=== PATIENT | male | born 1970 | race American Indian/Alaskan Native ===

== ENCOUNTER 2018-11-11 12:06 | Inpatient (IN) | payer MEDICARE ==
[~2018-11-11 12:06] MED LIST: MAXIPIME IV ONE; NS IV ONE
[2018-11-11] MEDS ORDERED: NACL 0.9% 500 ML 500 ML IV ONE (12:58)
[2018-11-11] MEDS ORDERED: MAXIPIME/NS 2 GM/100 ML 2 GM/100 ML BAG IV ONE (13:01)
[2018-11-11 13:21] LABS: Basophils % (Auto) 0.5 % (0.0-1.8); Eosinophils % (Auto) 0.1 % (0.0-4.3); Hematocrit 45.2 % (35.5-45.6); Hemoglobin 15.5 gm/dl (11.8-15.2); Lymphocytes % (Auto) 14.1 % (13.4-35.0); Mean Corpuscular HGB Conc 34 % (32-34); Mean Corpuscular Volume 97 fl (84-94); Monocytes # (Auto) 0.9 K/mm3 (0.0-0.8); Monocytes % (Auto) 12.1 % (0.0-7.3); Platelet Count 294 K/mm3 (140-440); Red Blood Count 4.66 M/mm3 (3.65-5.03); Red Cell Distribution Width 13.5 % (13.2-15.2)
[2018-11-11 13:31] LABS: INR 0.9 (0.87-1.13)
--- NOTE | 2018-11-11 13:32 | XRay Report ---
AP CHEST: HISTORY: Possible sepsis AP view of the chest demonstrates a normal mediastinal and cardiac contour with clear lungs and normal bony and soft tissue structures. IMPRESSION: Unremarkable AP chest.
[2018-11-11 13:42] LABS: Albumin 4.3 g/dL (3.9-5); BUN/Creatinine Ratio 13; Blood Urea Nitrogen 12 mg/dL (9-20); Calcium 9.3 mg/dL (8.4-10.2); Hemolysis Index 332
--- NOTE | 2018-11-11 13:53 | Cat Scan Report ---
CT HEAD WITHOUT CONTRAST: HISTORY: Altered mental status. TECHNIQUE: Sequential 2.5mm CT images. COMPARISON: none. FINDINGS: Cerebral Parenchyma: Within normal limits. Cerebellum: Within normal limits. Brainstem: Within normal limits. Ventricles: Normal. Sella: Normal. Extra-axial spaces: Normal. Basal Cisterns: Normal. Intracranial Hemorrhage: None. Midline Shift: None. Calvarium: Normal. Sinuses: Normal. Mastoid Air Cells: Normal. Visualized Orbits: Normal. IMPRESSION: Cranial CT scan within normal limits.
[2018-11-11 14:12] LABS: Alanine Aminotransferase TNR units/L (7-56)
[2018-11-11] MEDS ORDERED: XYLOCAINE 1% 20 mL INFILTRATI ONE (14:32)
[2018-11-11 15:25] LABS: BUN/Creatinine Ratio 15; Blood Urea Nitrogen 12 mg/dL (9-20); Calcium 9.3 mg/dL (8.4-10.2); Hemolysis Index 24
--- NOTE | 2018-11-11 16:20 | Emergency Department Report ---
ED General Adult HPI - General Chief complaint: Seizure Stated complaint: POSS SIEZURE Time Seen by Provider: 11/11/18 12:19 Source: EMS Mode of arrival: Stretcher Limitations: Altered Mental Status - History of Present Illness Initial comments: Patient presents to the emergency department for altered mental status. The patient was brought in by EMS. The call was placed for patient having seizures in his car. Upon arrival the patient was confused. Patient still remained confused on arrival to ED and confusion did not appear to be just a post ictal nature especially since it was possibly an hour and 20 minutes after the seizure activity. The patient was also warm to touch on arrival -: Sudden Severity scale (0 -10): 0 Improves with: none Worsens with: none Associated Symptoms: denies other symptoms Treatments Prior to Arrival: none - Related Data Allergies Allergy/AdvReac Type Severity Reaction Status Date / Time No Known Allergies Allergy Unverified 11/11/18 12:57 ED Review of Systems ROS: Stated complaint: POSS SIEZURE Other details as noted in HPI Comment: Unobtainable due to pts medical conditions ED Past Medical Hx - Past Medical History Previous Medical History?: Yes Hx Seizures: Yes Additional medical history: Hearing Impaired , "Sight Vision" - Surgical History Past Surgical History?: No - Social History Smoking Status: Never Smoker Substance Use Type: None ED Physical Exam - General Limitations: Altered Mental Status General appearance: obtunded - Head Head exam: Present: atraumatic, normocephalic - Eye Eye exam: Present: normal appearance, PERRL, EOMI - ENT ENT exam: Present: normal exam, mucous membranes moist - Neck Neck exam: Present: normal inspection, full ROM - Respiratory Respiratory exam: Present: normal lung sounds bilaterally. Absent: respiratory distress, wheezes, rales, rhonchi - Cardiovascular Cardiovascular Exam: Present: normal rhythm, tachycardia - GI/Abdominal GI/Abdominal exam: Present: soft, normal bowel sounds. Absent: distended, tenderness - Rectal Rectal exam: Present: deferred - Neurological Exam Neurological exam: Present: other (not able to assess due to the patient's mental capacity) - Psychiatric Psychiatric exam: Present: other (not able to assess due to the patient's mental capacity) - Skin Skin exam: Present: warm, dry, intact. Absent: normal color, rash ED Course Vital Signs 11/11/18 11/11/18 11/11/18 12:17 12:18 13:00 Temperature 101.9 F H 101.9 F H Pulse Rate 97 H 97 H Respiratory 18 16 16 Rate Blood Pressure 127/79 Blood Pressure 127/79 [Right] O2 Sat by Pulse 97 97 100 Oximetry 11/11/18 15:30 Temperature 99.1 F Pulse Rate 95 H Respiratory 16 Rate Blood Pressure Blood Pressure 122/77 [Right] O2 Sat by Pulse 100 Oximetry - Lumbar Puncture Consent Obtained: written consent Time Out Performed: Yes Indication for Procedure: fever work up, change in mental status Patient Position: Sitting Upright/Leaning F Skin Prep: Povidone-Iodine 1% Local Anesthetic Used: Lidocaine 1% Amount of anesthesia used (mls): 10 Spinal Needle Gauge: 20G Spinal Needle Length: 2in Interspace Used: L3-L4 Fluid Initially Obtained: other (none) Complications: none Patient Tolerated Procedure: well Additional Comments: 3. Toes were made at lumbar puncture but the patient had a significant amount o f movement and was not able to follow directions due to his altered mental status ED Medical Decision Making - Lab Data Result diagrams: 11/11/18 12:58 11/11/18 14:53 Lab Results 11/11/18 11/11/18 11/11/18 Range/Units 12:53 12:58 13:00 WBC 7.1 (4.5-11.0) K/mm3 RBC 4.66 (3.65-5.03) M/mm3 Hgb 15.5 H (11.8-15.2) gm/dl Hct 45.2 (35.5-45.6) % MCV 97 H (84-94) fl MCH 33 H (28-32) pg MCHC 34 (32-34) % RDW 13.5 (13.2-15.2) % Plt Count 294 (140-440) K/mm3 Lymph % (Auto) 14.1 (13.4-35.0) % [place] % (Auto) 12.1 H (0.0-7.3) % Eos % (Auto) 0.1 (0.0-4.3) % Baso % (Auto) 0.5 (0.0-1.8) % Lymph # 1.0 L (1.2-5.4) K/mm3 [place] # 0.9 H (0.0-0.8) K/mm3 Eos # 0.0 (0.0-0.4) K/mm3 Baso # 0.0 (0.0-0.1) K/mm3 Seg Neutrophils % 73.2 H (40.0-70.0) % Seg Neutrophils # 5.2 (1.8-7.7) K/mm3 PT 12.7 (12.2-14.9) Sec. INR 0.90 (0.87-1.13) VBG pH (7.320-7.420) Sodium 134 L (137-145) mmol/L Potassium TNR Chloride 97.3 L (98-107) mmol/L Carbon Dioxide 26 (22-30) mmol/L Anion Gap 17 mmol/L BUN 12 (9-20) mg/dL Creatinine 0.9 (0.8-1.5) mg/dL Estimated GFR > 60 ml/min BUN/Creatinine Ratio 13 % Glucose 95 (75-100) mg/dL Lactic Acid (0.7-2.0) mmol/L Calcium 9.3 (8.4-10.2) mg/dL Total Bilirubin 0.30 (0.1-1.2) mg/dL AST TNR ALT TNR Alkaline Phosphatase TNR Total Protein 8.0 (6.3-8.2) g/dL Albumin 4.3 (3.9-5) g/dL Albumin/Globulin Ratio 1.2 % 11/11/18 11/11/18 11/11/18 Range/Units 13:00 13:00 14:53 WBC (4.5-11.0) K/mm3 RBC (3.65-5.03) M/mm3 Hgb (11.8-15.2) gm/dl Hct (35.5-45.6) % MCV (84-94) fl MCH (28-32) pg MCHC (32-34) % RDW (13.2-15.2) % Plt Count (140-440) K/mm3 Lymph % (Auto) (13.4-35.0) % [place] % (Auto) (0.0-7.3) % Eos % (Auto) (0.0-4.3) % Baso % (Auto) (0.0-1.8) % Lymph # (1.2-5.4) K/mm3 [place] # (0.0-0.8) K/mm3 Eos # (0.0-0.4) K/mm3 Baso # (0.0-0.1) K/mm3 Seg Neutrophils % (40.0-70.0) % Seg Neutrophils # (1.8-7.7) K/mm3 PT (12.2-14.9) Sec. INR (0.87-1.13) VBG pH 7.389 (7.320-7.420) Sodium (137-145) mmol/L Potassium Chloride (98-107) mmol/L Carbon Dioxide (22-30) mmol/L Anion Gap mmol/L BUN (9-20) mg/dL Creatinine (0.8-1.5) mg/dL Estimated GFR ml/min BUN/Creatinine Ratio % Glucose (75-100) mg/dL Lactic Acid 1.50 1.80 (0.7-2.0) mmol/L Calcium (8.4-10.2) mg/dL Total Bilirubin (0.1-1.2) mg/dL AST ALT Alkaline Phosphatase Total Protein (6.3-8.2) g/dL Albumin (3.9-5) g/dL Albumin/Globulin Ratio % 11/11/18 Range/Units 14:53 WBC (4.5-11.0) K/mm3 RBC (3.65-5.03) M/mm3 Hgb (11.8-15.2) gm/dl Hct (35.5-45.6) % MCV (84-94) fl MCH (28-32) pg MCHC (32-34) % RDW (13.2-15.2) % Plt Count (140-440) K/mm3 Lymph % (Auto) (13.4-35.0) % [place] % (Auto) (0.0-7.3) % Eos % (Auto) (0.0-4.3) % Baso % (Auto) (0.0-1.8) % Lymph # (1.2-5.4) K/mm3 [place] # (0.0-0.8) K/mm3 Eos # (0.0-0.4) K/mm3 Baso # (0.0-0.1) K/mm3 Seg Neutrophils % (40.0-70.0) % Seg Neutrophils # (1.8-7.7) K/mm3 PT (12.2-14.9) Sec. INR (0.87-1.13) VBG pH (7.320-7.420) Sodium 138 (137-145) mmol/L Potassium 4.6 Chloride 98.1 (98-107) mmol/L Carbon Dioxide 26 (22-30) mmol/L Anion Gap 19 mmol/L BUN 12 (9-20) mg/dL Creatinine 0.8 (0.8-1.5) mg/dL Estimated GFR > 60 ml/min BUN/Creatinine Ratio 15 % Glucose 100 (75-100) mg/dL Lactic Acid (0.7-2.0) mmol/L Calcium 9.3 (8.4-10.2) mg/dL Total Bilirubin (0.1-1.2) mg/dL AST ALT Alkaline Phosphatase Total Protein (6.3-8.2) g/dL Albumin (3.9-5) g/dL Albumin/Globulin Ratio % - EKG Data -: EKG Interpreted by Me EKG shows normal: sinus rhythm Rate: tachycardia - Radiology Data Radiology results: report reviewed Critical Care Time: Yes Critical care time in (mins) excluding proc time.: 45 Critical care attestation.: If time is entered above; I have spent that time in minutes in the direct care of this critically ill patient, excluding procedure time. ED Disposition Clinical Impression: Altered mental status, Fever Disposition: DC-01 TO HOME OR SELFCARE Is pt being admited?: Yes Does the pt Need Aspirin: No Condition: Stable Referrals: WANETTE FRANCHESKAPAOLIELLIS MD YAAKOV [Primary Care Provider] - 3-5 Days - Assessment Assessment Interval: Baseline - Level of Consciousness 1a. Level of Consciousness: arousable/minor stimuli - LOC Questions 1b. LOC Questions: answers no questions correctly - LOC Command 1c. LOC Commands: performs tasks correctly - Best Gaze 2. Best Gaze: normal - Visual 3. Visual: no visual loss - Facial Palsy 4. Facial Palsy: normal symmetrical movement - Motor Arm 5a. Motor Arm Left: no drift 5b. Motor Arm Right: no drift - Motor Leg 6a. Motor Leg Left: no drift 6b. Motor Leg Right: no drift - Limb Ataxia 7. Limb Ataxia: absent - Sensory 8. Sensory: normal - Best Language 9. Best Language: no aphasia - Dysarthria 10. Dysarthria: normal - Extinction and Inattention 11. Extinction/Inattention: no abnormality - Scoring Total Score: 3 Stroke Severity: Minor Stroke
[2018-11-11] MEDS ORDERED: ATIVAN IV ONE (16:23)
[2018-11-11 16:52] LABS: Bilirubin,Urine NEG (Negative); Blood,Urine NEG (Negative); Color,Urine Yellow (Yellow); Mucus,Urine FEW /HPF; Urobilinogen,Urine < 2.0 mg/dL (<2.0)
[2018-11-11] MEDS ORDERED: SODIUM CHLORIDE FLUSH SYRINGE 10 ML IV PRN (22:57)
[2018-11-11] MEDS ORDERED: ZOFRAN IV PRN (22:57)
[2018-11-11] MEDS ORDERED: DILAUDID IV PRN (22:57)
[2018-11-11] MEDS ORDERED: PERCOCET 5/325 PO PRN (22:57)
[2018-11-11] MEDS ORDERED: ATIVAN IV PRN (23:01)
[2018-11-12] MEDS: TYLENOL PO PRN ×2 (00:17→06:57)
[2018-11-12] MEDS: KEPPRA 750 MG in NACL 0.9% 100 ML IV SCH ×3 (00:18→21:30)
[2018-11-12] MEDS: SODIUM CHLORIDE FLUSH SYRINGE 10 ML IV SCH ×3 (00:20→21:31)
[2018-11-12 05:38] LABS: Basophils % (Auto) 0.4 % (0.0-1.8); Eosinophils % (Auto) 0.1 % (0.0-4.3); Hematocrit 46.6 % (35.5-45.6); Hemoglobin 15.9 gm/dl (11.8-15.2); Lymphocytes # (Auto) 1.6 K/mm3 (1.2-5.4); Lymphocytes % (Auto) 22.7 % (13.4-35.0); Mean Corpuscular HGB Conc 34 % (32-34); Mean Corpuscular Volume 97 fl (84-94); Monocytes # (Auto) 1.1 K/mm3 (0.0-0.8); Monocytes % (Auto) 15.9 % (0.0-7.3); Platelet Count 209 K/mm3 (140-440); Red Cell Distribution Width 13.3 % (13.2-15.2)
[2018-11-12 06:04] LABS: Alanine Aminotransferase 27 units/L (7-56); BUN/Creatinine Ratio 14; Blood Urea Nitrogen 14 mg/dL (9-20); Calcium 9.2 mg/dL (8.4-10.2); Hemolysis Index 10
--- NOTE | 2018-11-12 06:38 | Event Note ---
Date: 11/11/18 See H/p in reports Seizure disorder
[2018-11-12] MEDS ORDERED: ROCEPHIN/NS 2 GM/100 ML 2 GM/100 ML BAG IV SCH (06:42)
[2018-11-12] MEDS: ROCEPHIN/NS 2 GM/100 ML 2 GM/100 ML BAG IV SCH ×2 (06:56→14:32)
[2018-11-12] MEDS: PEPCID IV SCH ×3 (06:57→21:31)
--- NOTE | 2018-11-12 07:49 | History and Physical Report ---
CHIEF COMPLAINT: 1. Altered mental status. 2. Seizures. HISTORY OF PRESENT ILLNESS: A 48-year-old with no significant past medical history except for seizures. Apparently, was having seizures in the car and was altered sensorium. No witnessed seizures. The patient is not taking any medications for his seizures. The patient was brought in by the EMS. The patient was confused when the EMS arrived. No fever or chills. The patient was still confused after 1-1/2 hours of seizure activity. History of generalized tonic-clonic convulsions. No witnessed seizures now. PAST MEDICAL HISTORY: Seizures. Hearing impaired. PAST SURGICAL HISTORY: None. SOCIAL HISTORY: Does not smoke. FAMILY HISTORY: Unknown. REVIEW OF SYSTEMS: Significant for seizure disorder, seizures and altered sensorium. Otherwise, review of systems is negative. PHYSICAL EXAMINATION: GENERAL: Young male, cooperative during examination. VITAL SIGNS: Blood pressure is 122/77, temperature is 99.1, pulse is 95, respirations are 16. HEENT: Unremarkable. Pupils equal and reactive. NECK: Supple, no lymphadenopathy, no thyromegaly. LUNGS: Clear to auscultation and percussion. Good air entry. CARDIOVASCULAR: S1, S2 heard. No gallop, no murmur, no rub. Apical impulse in left fifth intercostal space and midclavicular line. ABDOMEN: Soft and benign. No hepatosplenomegaly. No guarding, no rigidity. Hernial orifices are normal. EXTREMITIES: Good pedal pulses. No pedal edema. CENTRAL NERVOUS SYSTEM: Slightly altered sensorium, but more responsive during my examination. LABORATORY DATA: Significant for white count of 7100, H and H of 15.5 and 45.2, platelet count is 294,000. Electrolytes are normal. Urine is normal. Cranial CT is within normal limits. Chest x-ray shows unremarkable AP chest. ASSESSMENT AND PLAN: 1. Status epilepticus versus seizure disorder. The patient initiated on IV Keppra. The patient is not on any seizure medication. Neurology consult requested. EEG ordered. 2. Meningitis is unlikely. ER physician was concerned about meningitis. Ceftriaxone initiated for possible infection, which can be stopped in 24-48 hours if no fever and no neck stiffness. 3. Deep venous thrombosis prophylaxis, Lovenox 40 mg subcutaneous daily. 4. Acute encephalopathy secondary to seizure disorder and postictal. JOB# [id number] MARLENY/SABINE ALONZO
--- NOTE | 2018-11-12 12:12 | Consultation ---
History of Present Illness Consult date: 11/12/18 Requesting physician: JOSE ALVAREZ Reason for Consult: seizures History of present illness: 48 year old male with history of seizure disorder and left ear deafness, was brought to ER by EMS, found to be seizing at a bus stop. The pt. is slowly coming around from a post-ictal state. He states that he remembers going to the bus stop, then next thing he remembers is the EMS drivers picking him up. He was brought to ER where he was given Keppra. He was still postictal after the event. He claims to have one seizure every few months. He is followed by a neurologist and has an appt. in December. He takes Depakote and Tegretol for his seizures. He denies a history of head trauma, family history of seizures, or r ecent illness. He asserts that he takes his medication daily. Past History Past Medical History: seizures, other (left hearing loss since childhood.) Social history: single. denies: smoking, alcohol abuse Medications and Allergies Allergies Allergy/AdvReac Type Severity Reaction Status Date / Time No Known Allergies Allergy Unverified 11/11/18 12:57 Active Meds: Active Medications Acetaminophen (Tylenol) 650 mg PO Q4H PRN PRN Reason: Pain MILD(1-3)/Fever >100.5/ZAVALA Last Admin: 11/12/18 06:57 Dose: 650 mg Documented by: Famotidine (Pepcid) 20 mg IV BID BEAR Last Admin: 11/12/18 10:21 Dose: 20 mg Documented by: Hydromorphone HCl (Dilaudid) 0.5 mg IV Q3H PRN PRN Reason: Pain , Severe (7-10) Ceftriaxone Sodium (Rocephin/Ns 2 Gm/100 Ml) 2 gm in 100 mls @ 200 mls/hr IV Q24HR BEAR; Protocol Last Admin: 11/12/18 06:56 Dose: 200 mls/hr Documented by: Levetiracetam 750 mg/ Sodium (Chloride) 107.5 mls @ 400 mls/hr IV Q12HR BEAR Last Admin: 11/12/18 09:08 Dose: 400 mls/hr Documented by: Lorazepam (Ativan) 1 mg IV Q4H PRN PRN Reason: Seizures Last Admin: 11/12/18 00:20 Dose: 1 mg Documented by: Ondansetron HCl (Zofran) 4 mg IV Q8H PRN PRN Reason: Nausea And Vomiting Oxycodone/Acetaminophen (Percocet 5/325) 1 tab PO Q6H PRN PRN Reason: Pain, Moderate (4-6) Sodium Chloride (Sodium Chloride Flush Syringe 10 Ml) 10 ml IV BID BEAR Last Admin: 11/12/18 10:22 Dose: 10 ml Documented by: Sodium Chloride (Sodium Chloride Flush Syringe 10 Ml) 10 ml IV PRN PRN PRN Reason: LINE FLUSH Review of Systems Constitutional: no weakness, no chronic headaches Ears, nose, mouth and throat: other (deaf in left ear) Cardiovascular: no rapid/irregular heart beat, no lightheadedness Respiratory: cough Gastrointestinal: no abdominal pain, no nausea, no vomiting Genitourinary Male: no dysuria, no urinary frequency Musculoskeletal: no neck stiffness, no arm numbness/tingling, no leg numbness/tingling, no muscle weakness Integumentary: no rash, no pruritis Neurological: seizures, convulsions, no weakness, no numbness, no tingling, no syncope, no lack of coordination, no vertigo, no gait dysfunction, no motor disturbance, no sensory deficit Physical Examination - Vital Signs Vital Signs: Vital Signs Temp Pulse Resp BP Pulse Ox 101.9 F H 97 H 18 127/79 97 11/11/18 12:17 11/11/18 12:17 11/11/18 12:17 11/11/18 12:17 11/11/18 12:17 - Physical Exam Narrative exam: General - Resting comfortably. Difficult to arouse secondary to left hearing loss. Neurological exam - speech fluent. oriented. 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 V-1 thru V-3 intact bilaterally. Face symmetric. Hearing - absent in left ear, decreased on rt. Tongue midline. Motor - 5/5 throughout. Sensory - intact to touch and pin. Reflexes - +2 in lower extremities, +1 in upper extremities. Cerebellar - FTN, fine finger movements intact. Clumsy on Lalo. - Assessment Assessment Interval: Baseline - Level of Consciousness 1a. Level of Consciousness: arousable/minor stimuli - LOC Questions 1b. LOC Questions: answers no questions correctly - LOC Command 1c. LOC Commands: performs tasks correctly - Best Gaze 2. Best Gaze: normal - Visual 3. Visual: no visual loss - Facial Palsy 4. Facial Palsy: normal symmetrical movement - Motor Arm 5b. Motor Arm Right: no drift - Motor Leg 6a. Motor Leg Left: no drift - Limb Ataxia 7. Limb Ataxia: absent - Sensory 8. Sensory: normal - Best Language 9. Best Language: no aphasia - Dysarthria 10. Dysarthria: normal - Extinction and Inattention 11. Extinction/Inattention: no abnormality Results - Laboratory Findings CBC and BMP: 11/12/18 04:59 11/12/18 04:59 Abnormal Lab Findings: Abnormal Labs 11/11/18 11/11/18 11/12/18 12:53 12:58 04:59 Hgb 15.5 H 15.9 H Hct 46.6 H MCV 97 H 97 H MCH 33 H 33 H [place] % (Auto) 12.1 H 15.9 H Lymph # 1.0 L [place] # 0.9 H 1.1 H Seg Neutrophils % 73.2 H Sodium 134 L Chloride 97.3 L 11/12/18 04:59 Hgb Hct MCV MCH [place] % (Auto) Lymph # [place] # Seg Neutrophils % Sodium Chloride 97.8 L Assessment and Plan 48 year old male with seizure history, presents with a spell occurring at a bus stop. He states he has severl seizures per year. He is followed by a neurologist. He claims that he is compliant with his medications. Plan - MRI brain EEG Check anticonvulsant levels.
--- NOTE | 2018-11-12 15:21 | Progress Note ---
Assessment and Plan Assessment and plan: Patient is a 48 yo man with a history of deafness with left hearing aid and seizure disorder who presented to [facility] ED with AMS and seizure activity. He was found to fevers of 101.9F Status epileptics: treat with iv keppra, Neurology is following Fevers, LP was unsuccessful in ED, already started on IV abx: consulted ID, consult radiology for LP Acute encephalopathy History Interval history: Patient was seen and examined. Follow-up on current diagnosis AMS. Overnight uneventful. Patient denies any chest pain, shortness breath, nausea/vomiting or severe headaches. Imaging, nursing note, chart, labs and old chart reviewed. Discussed with patient. Hospitalist Physical - Physical exam Narrative exam: Gen: WDWN, NAD, Awake, Alert, Orientated HEENT: NCAT, EOMI, PERRL, OP Clear Neck: supple, no adenopathy, no thyromegaly, no JVD CVS/Heart: RRR, normal S1S2, pulses present bilaterally Chest/Lungs: CTA B, Symmetrical chest expansion, good air entry bilaterally GI/Abdomen: soft, NTND, good bowel sounds, no guarding or rebound /Bladder: no suprapubic tenderness, no CVA or paraspinal tenderness Extermity/Skin: no c/c/e, no obvious rash MSK: FROM x 4 Neuro: CN 2-12 grossly intact except hearing, no new focal deficits Psych: calm - Constitutional Vitals: Temp Pulse Resp BP Pulse Ox 98.3 F 100 H 20 128/79 97 11/12/18 12:47 11/12/18 12:47 11/12/18 12:47 11/12/18 12:47 11/12/18 12:47 Results - Labs CBC & Chem 7: 11/12/18 04:59 11/12/18 04:59 Labs: Laboratory Last Values WBC 7.1 K/mm3 (4.5-11.0) 11/12/18 04:59 RBC 4.80 M/mm3 (3.65-5.03) 11/12/18 04:59 Hgb 15.9 gm/dl (11.8-15.2) H 11/12/18 04:59 Hct 46.6 % (35.5-45.6) H 11/12/18 04:59 MCV 97 fl (84-94) H 11/12/18 04:59 MCH 33 pg (28-32) H 11/12/18 04:59 MCHC 34 % (32-34) 11/12/18 04:59 RDW 13.3 % (13.2-15.2) 11/12/18 04:59 Plt Count 209 K/mm3 (140-440) 11/12/18 04:59 Lymph % (Auto) 22.7 % (13.4-35.0) 11/12/18 04:59 [place] % (Auto) 15.9 % (0.0-7.3) H 11/12/18 04:59 Eos % (Auto) 0.1 % (0.0-4.3) 11/12/18 04:59 Baso % (Auto) 0.4 % (0.0-1.8) 11/12/18 04:59 Lymph # 1.6 K/mm3 (1.2-5.4) 11/12/18 04:59 [place] # 1.1 K/mm3 (0.0-0.8) H 11/12/18 04:59 Eos # 0.0 K/mm3 (0.0-0.4) 11/12/18 04:59 Baso # 0.0 K/mm3 (0.0-0.1) 11/12/18 04:59 Seg Neutrophils % 60.9 % (40.0-70.0) 11/12/18 04:59 Seg Neutrophils # 4.3 K/mm3 (1.8-7.7) 11/12/18 04:59 PT 12.7 Sec. (12.2-14.9) 11/11/18 13:00 INR 0.90 (0.87-1.13) 11/11/18 13:00 VBG pH 7.389 (7.320-7.420) 11/11/18 13:00 Sodium 137 mmol/L (137-145) 11/12/18 04:59 Potassium 4.1 mmol/L (3.6-5.0) 11/12/18 04:59 Chloride 97.8 mmol/L (98-107) L 11/12/18 04:59 Carbon Dioxide 26 mmol/L (22-30) 11/12/18 04:59 Anion Gap 17 mmol/L 11/12/18 04:59 BUN 14 mg/dL (9-20) 11/12/18 04:59 Creatinine 1.0 mg/dL (0.8-1.5) 11/12/18 04:59 Estimated GFR > 60 ml/min 11/12/18 04:59 BUN/Creatinine Ratio 14 % 11/12/18 04:59 Glucose 94 mg/dL (75-100) 11/12/18 04:59 Hemoglobin A1c 5.8 % (4-6) 11/11/18 23:08 Lactic Acid 1.80 mmol/L (0.7-2.0) 11/11/18 14:53 Calcium 9.2 mg/dL (8.4-10.2) 11/12/18 04:59 Total Bilirubin 0.50 mg/dL (0.1-1.2) 11/12/18 04:59 AST 29 units/L (5-40) 11/12/18 04:59 ALT 27 units/L (7-56) 11/12/18 04:59 Alkaline Phosphatase 62 units/L (35-129) 11/12/18 04:59 Total Protein 7.4 g/dL (6.3-8.2) 11/12/18 04:59 Albumin 4.0 g/dL (3.9-5) 11/12/18 04:59 Albumin/Globulin Ratio 1.2 % 11/12/18 04:59 Urine Color Yellow (Yellow) 11/11/18 16:11 Urine Turbidity Clear (Clear) 11/11/18 16:11 Urine pH 6.0 (5.0-7.0) 11/11/18 16:11 Ur Specific [place] 1.029 (1.003-1.030) 11/11/18 16:11 Urine Protein 30 mg/dl mg/dL (Negative) 11/11/18 16:11 Urine Glucose (UA) Neg mg/dL (Negative) 11/11/18 16:11 Urine Ketones Tr mg/dL (Negative) 11/11/18 16:11 Urine Blood Neg (Negative) 11/11/18 16:11 Urine Nitrite Neg (Negative) 11/11/18 16:11 Urine Bilirubin Neg (Negative) 11/11/18 16:11 Urine Urobilinogen < 2.0 mg/dL (<2.0) 11/11/18 16:11 Ur Leukocyte Esterase Neg (Negative) 11/11/18 16:11 Urine WBC (Auto) 1.0 /HPF (0.0-6.0) 11/11/18 16:11 Urine RBC (Auto) 1.0 /HPF (0.0-6.0) 11/11/18 16:11 U Epithel Cells (Auto) < 1.0 /HPF (0-13.0) 11/11/18 16:11 Urine Mucus Few /HPF 11/11/18 16:11
--- NOTE | 2018-11-12 16:12 | Consultation ---
History of Present Illness - Reason for Consult Consult date: 11/12/18 Seizures, Fever, meningitis Requesting physician: JOSE ALVAREZ - History of Present Illness This patient is a 48-year-old male with a past medical history of a seizure disorder and left ear deafness. He was brought to the ER by EMS on 11/11/18 because he was found to be having active seizures at a bus stop. He continued to be postictal after the event.with AMS. upon further evaluation, he claims to have one seizure every few months. He is followed by a neurologist and takes Depakote and Tegretol for his seizures. On admission WBC 7.1, Creatinine 0.9, Lactic Acid 1.50, Temperature 101.9, , HR 97, BP 127/79, U/A was not consistent with a UTI. Chest xray shows no consolidation. Head CT was within normal limits. Blood and Urine cultures were drawn and show no growth after 24 hours. Patient unable to provide history because of mental status. . Past History Past Medical History: seizures, other (left hearing loss since childhood.) Social history: single. denies: smoking, alcohol abuse Medications and Allergies Allergies Allergy/AdvReac Type Severity Reaction Status Date / Time No Known Allergies Allergy Unverified 11/11/18 12:57 Active Meds: Active Medications Acetaminophen (Tylenol) 650 mg PO Q4H PRN PRN Reason: Pain MILD(1-3)/Fever >100.5/ZAVALA Last Admin: 11/12/18 06:57 Dose: 650 mg Documented by: Famotidine (Pepcid) 20 mg IV BID BEAR Last Admin: 11/12/18 10:21 Dose: 20 mg Documented by: Hydromorphone HCl (Dilaudid) 0.5 mg IV Q3H PRN PRN Reason: Pain , Severe (7-10) Ceftriaxone Sodium (Rocephin/Ns 2 Gm/100 Ml) 2 gm in 100 mls @ 200 mls/hr IV Q24HR BEAR; Protocol Last Admin: 11/12/18 14:32 Dose: 200 mls/hr Documented by: Levetiracetam 750 mg/ Sodium (Chloride) 107.5 mls @ 400 mls/hr IV Q12HR BEAR Last Admin: 11/12/18 09:08 Dose: 400 mls/hr Documented by: Lorazepam (Ativan) 1 mg IV Q4H PRN PRN Reason: Seizures Last Admin: 11/12/18 00:20 Dose: 1 mg Documented by: Ondansetron HCl (Zofran) 4 mg IV Q8H PRN PRN Reason: Nausea And Vomiting Oxycodone/Acetaminophen (Percocet 5/325) 1 tab PO Q6H PRN PRN Reason: Pain, Moderate (4-6) Sodium Chloride (Sodium Chloride Flush Syringe 10 Ml) 10 ml IV BID BEAR Last Admin: 11/12/18 10:22 Dose: 10 ml Documented by: Sodium Chloride (Sodium Chloride Flush Syringe 10 Ml) 10 ml IV PRN PRN PRN Reason: LINE FLUSH Physical Examination - Physical Exam Narrative exam: Constitutional: Alert, cooperative. No acute distress. Acute Encephalopathy Head, Ears, Nose: Normocephalic, atraumatic. External ears, nose normal Eyes: Conjunctivae/corneas clear. No icterus. No ptosis. Neck: Supple, no meningeal signs Oral: dentition good, no thrush Cardiovascular: S1, S2 normal. Respiratory: Good air entry, clear to auscultation bilaterally GI: Soft, non-tender; bowel sounds normal. No peritoneal signs Musculoskeletal: No pedal edema, no cyanosis. Skin: No rash or abscess. Hem/Lymphatic: No palpable cervical or supraclavicular nodes. No lymphangitis Psych: Mood ok. Affect slightly agitated, confused Neurological: Awake, alert, acute encephalopathy - Constitutional Vitals: Vital Signs Temp Pulse Resp BP Pulse Ox 98.3 F 100 H 20 128/79 97 11/12/18 12:47 11/12/18 12:47 11/12/18 12:47 11/12/18 12:47 11/12/18 12:47 Temperature -Last 24 Hours Temperature 98.3 F Temperature 101.8 F Temperature 102.1 F Temperature 99.8 F Results - Labs CBC & Chem 7: 11/12/18 04:59 11/12/18 04:59 Labs: Abnormal lab results 11/12/18 11/12/18 11/12/18 Range/Units 04:59 04:59 13:40 Hgb 15.9 H (11.8-15.2) gm/dl Hct 46.6 H (35.5-45.6) % MCV 97 H (84-94) fl MCH 33 H (28-32) pg [place] % (Auto) 15.9 H (0.0-7.3) % [place] # 1.1 H (0.0-0.8) K/mm3 Chloride 97.8 L (98-107) mmol/L Valproic Acid 28.4 L (50-100) ug/mL - Imaging and Cardiology Chest x-ray: image reviewed (No consolidation) CT Scan - head: image reviewed (within normal limits) Assessment and Plan Cultures: 10/14/2018 Urine: no growth after 24 hours 11/11/2018 Blood: no growth after 24 hours A/P: 48-year-old male with a past medical history of a seizure disorder and left ear deafness..History of seizure active every few months. Followed by a Neurologist and takes Depakote and Tegretol. . Admitted with: 1.Acute Fever: in the setting of seizure activity at a bus stop and continued to be postictal after the event with AMS. No leucocytosis. Fever could be seizure related v/s viral infection v/s meningitis, although meningitis seems qu ite less likely, patient is up sitting in a chair, no meningeal signs. UA is not consistent with a urinary tract infection, CXR does not show pnuemonia. Blood and urine cultures were drawn and show no growth after 24 hours. LP attempted in the ED, unsuccessful. Agree with repeating LP and sending CSF for cell count, protein, glucose and cultures, ar HSV PCR. Neurology on board, recommended MRI. Currently being treated with ceftriaxone. 2. Acute Encephalopathy: unclear if this is baseline. No family at bedside. Plan: -f/u Lumbar Puncture -order CSF for cell count w DIff, Glucose and total protein, culture -order CSF HSV PCR, (ordered as CSF viral PCR panel) -f/u Blood culture -f/u MRI Brain -Continue Ceftriaxone 2gms every 24 hours d/w Dr. Yousif Elena, [facility] M: [phone] O:[phone]
[2018-11-13 06:14] LABS: Hematocrit 41.6 % (35.5-45.6); Hemoglobin 14.3 gm/dl (11.8-15.2); Mean Corpuscular HGB Conc 34 % (32-34); Mean Corpuscular Volume 97 fl (84-94); Platelet Count 197 K/mm3 (140-440); Red Blood Count 4.28 M/mm3 (3.65-5.03); Red Cell Distribution Width 13.4 % (13.2-15.2)
[2018-11-13 06:26] LABS: BUN/Creatinine Ratio 18; Blood Urea Nitrogen 14 mg/dL (9-20); Calcium 8.6 mg/dL (8.4-10.2); Hemolysis Index 31
[2018-11-13] MEDS: PEPCID IV SCH ×2 (09:28→21:48)
[2018-11-13] MEDS: ROCEPHIN/NS 2 GM/100 ML 2 GM/100 ML BAG IV SCH (09:29)
[2018-11-13] MEDS: SODIUM CHLORIDE FLUSH SYRINGE 10 ML IV SCH ×2 (09:31→21:48)
--- NOTE | 2018-11-13 09:47 | Progress Note ---
Assessment and Plan Cultures: 10/14/2018 Urine: no growth after 24 hours 11/11/2018 Blood: no growth after 24 hours 11/13/2018 CSF Cryptococcal Antigen: negative A/P: 48-year-old male with a past medical history of a seizure disorder and left ear deafness..History of seizure active every few months. Followed by a Neurologist and takes Depakote and Tegretol. . Admitted with: 1.Acute Fever: Resolved, No Fever in > 24 hours, in the setting of seizure activity at a bus stop and continued to be postictal after the event with AMS. No leucocytosis. Fever could be seizure related v/s viral infection v/s meningitis, although meningitis seems quite less likely, patient is up sitting in a chair, no meningeal signs. UA is not consistent with a urinary tract infection, CXR does not show pnuemonia. Blood and urine cultures were drawn and show no growth after 24 hours. LP successfully done 11/13/18 . CSF for cell count, protein, glucose and cultures and HSV PCR. ordered . Neurology on board. Currently being treated with ceftriaxone. 2. Acute Encephalopathy: unclear if this is baseline. No family at bedside. Brain MRI: No evidence for acute ischemia, hemorrhage or mass. No chronic infarct or extra-axial fluid collection. Unremarkable non-enhanced MRI of the brain. Plan: -f/u CSF for cell count w DIff, Glucose and total protein, culture -f/u CSF HSV PCR, (ordered as CSF viral PCR panel) -f/u Blood culture -Continue Ceftriaxone 2gms every 24 hours, D2 [facility] M: [phone] O:[phone] Subjective Date of service: 11/13/18 Objective - Constitutional Vitals: Vital Signs Temp Pulse Resp BP Pulse Ox 98.4 F 91 H 16 120/74 97 11/13/18 05:31 11/13/18 05:31 11/13/18 05:31 11/13/18 05:31 11/13/18 05:31 Temperature -Last 24 Hours Temperature 98.4 F Temperature 98.3 F Temperature 99.3 F Temperature 99.0 F Temperature 98.3 F - Labs CBC & Chem 7: 11/13/18 05:37 11/13/18 05:37 Labs: Abnormal lab results 0311/12/18 11/13/18 Range/Units 13:40 13:40 05:37 MCV 97 H (84-94) fl MCH 33 H (28-32) pg Glucose (75-100) mg/dL Vitamin B12 1023 H (211-911) pg/mL Valproic Acid 28.4 L (50-100) ug/mL 11/13/18 Range/Units 05:37 MCV (84-94) fl MCH (28-32) pg Glucose 115 H (75-100) mg/dL Vitamin B12 (211-911) pg/mL Valproic Acid (50-100) ug/mL
[2018-11-13] MEDS ORDERED: XYLOCAINE 1% 20 mL ONE (10:23)
--- NOTE | 2018-11-13 11:39 | Magnetic Resonance Report ---
MRI OF THE BRAIN WITHOUT CONTRAST: HISTORY: Seizures PROCEDURE: Multiplanar, multisequence MR imaging of the brain without IV contrast was performed. FINDINGS: Compared to CT head dated 11/11/18. The brain parenchyma signal intensity and its sandhu white interface are within normal limits on all sequences. No evidence for acute ischemia, hemorrhage or mass. No chronic infarct or extra-axial fluid collection. The midline structures are central. The basal cisterns are patent. Normal ventricular size. The orbital cavities and sella turcica demonstrate no abnormality. The visualized paranasal sinuses and mastoid air cells are well aerated. IMPRESSION: Unremarkable non-enhanced MRI of the brain.
--- NOTE | 2018-11-13 12:41 | Consultation ---
History of Present Illness - Reason for Consult Consult date: 11/13/18 Reason for consult: Mental Health health Evaluation Requesting physician: JOSE ALVAREZ - Chief Complaint Chief complaint: "Hello" - History of Present Psychiatric Illness 48 y.o. AA male who presented to the ER for AMS. Today the patient is calm and cooperative during the assessment. This patient is hearing impaired with hearing aids. He stated that he had a seizure while waiting on the bus 2 days ago ago. He stated that he was brought to the ER and things are not clear what happened after that per the patient. He was asked about his mental health, he stated, "I don't have mental problem." He stated that he take Tegretol and Depakote for seizures. He stated that he has a neurologist (Dr Moreira). He was able to ID the current [place] President and his when asked. He stated that he resides with roommates in [place], [place]. He denies SI/HI's and AVH's. He denies recreational drug use and alcohol consumption (etoh). Per the staff, no behavioral disturbances overnight. Per the patient, the batteries are low in his hearing aids. Medications and Allergies Allergies Allergy/AdvReac Type Severity Reaction Status Date / Time No Known Allergies Allergy Unverified 11/11/18 12:57 Active Meds: Active Medications Acetaminophen (Tylenol) 650 mg PO Q4H PRN PRN Reason: Pain MILD(1-3)/Fever >100.5/ZAVALA Last Admin: 11/12/18 06:57 Dose: 650 mg Documented by: Famotidine (Pepcid) 20 mg IV BID BEAR Last Admin: 11/13/18 09:28 Dose: 20 mg Documented by: Hydromorphone HCl (Dilaudid) 0.5 mg IV Q3H PRN PRN Reason: Pain , Severe (7-10) Ceftriaxone Sodium (Rocephin/Ns 2 Gm/100 Ml) 2 gm in 100 mls @ 200 mls/hr IV Q24HR BEAR; Protocol Last Admin: 11/13/18 09:29 Dose: 200 mls/hr Documented by: Levetiracetam 750 mg/ Sodium (Chloride) 107.5 mls @ 400 mls/hr IV Q12HR BEAR Last Admin: 11/12/18 21:30 Dose: 400 mls/hr Documented by: Lorazepam (Ativan) 1 mg IV Q4H PRN PRN Reason: Seizures Last Admin: 11/12/18 00:20 Dose: 1 mg Documented by: Ondansetron HCl (Zofran) 4 mg IV Q8H PRN PRN Reason: Nausea And Vomiting Oxycodone/Acetaminophen (Percocet 5/325) 1 tab PO Q6H PRN PRN Reason: Pain, Moderate (4-6) Sodium Chloride (Sodium Chloride Flush Syringe 10 Ml) 10 ml IV BID BEAR Last Admin: 11/13/18 09:31 Dose: 10 ml Documented by: Sodium Chloride (Sodium Chloride Flush Syringe 10 Ml) 10 ml IV PRN PRN PRN Reason: LINE FLUSH Past psychiatric history - Past Medical History Past Medical History: seizures, other (Hearing Impaired) Past Surgical History: No surgical history - past Psychiatric treatment and history psychiatric treatment history: Denies a psy hx and a fam psy hx. - Social History Social history: other (Reside with roomates) Mental Status Exam - Vital signs Last Vital Signs Temp 98.4 F 11/13/18 05:31 Pulse 91 H 11/13/18 05:31 Resp 16 11/13/18 05:31 BP 120/74 11/13/18 05:31 Pulse Ox 97 11/13/18 05:31 - Exam Narrative exam: MSE: Appearance: calm, cooperative Behavior: regular eye contact Speech: regular rate and tone Mood: "okay" Affect: congruent to mood Thought Process: logical Thought Content: denies SI/HI's and AVH's Motor Activity: sitting up in the bed Cognition: A/O x3 Insight: fair Judgment: appropriate Results Result Diagrams: 11/13/18 05:37 11/13/18 05:37 Abnormal lab results 11/12/18 11/12/18 11/13/18 Range/Units 13:40 13:40 05:37 MCV 97 H (84-94) fl MCH 33 H (28-32) pg Glucose (75-100) mg/dL Vitamin B12 1023 H (211-911) pg/mL Valproic Acid 28.4 L (50-100) ug/mL 11/13/18 Range/Units 05:37 MCV (84-94) fl MCH (28-32) pg Glucose 115 H (75-100) mg/dL Vitamin B12 (211-911) pg/mL Valproic Acid (50-100) ug/mL All other labs normal. Assessment and Plan Assessment and plan: Impression: No overt psychosis or confusion with the patient. The patient's AMS was possible residual from his seizure activity. The patient is hearing impaired. Neuro is following the patient. Medical: Seizure DO Recommendation/Plan: Rescind 1013. The patient home meds include Tegretol and Depakote for seizures. Dispo: The patient can follow up with is neurologist Dr Murray. Will staff with Dr Beckford.
[2018-11-13 13:01] LABS: Glucose,CSF 78 mg/dL
[2018-11-13] MEDS: KEPPRA 750 MG in NACL 0.9% 100 ML IV SCH ×2 (14:20→21:48)
[2018-11-13 14:26] LABS: Appearance,CSF Clear; Red Blood Cell,CSF 29 /mm3 (0-0); Total Cells Counted 10 /mm3; White Blood Cell,CSF 2 /mm3 (1-10)
[2018-11-13 14:27] LABS: Basophils CSF 0 %
--- NOTE | 2018-11-13 14:29 | Fluoroscopy Report ---
FLUOROSCOPY LUMBAR PUNCTURE History: Fever, seizures. Description of procedure: Informed consent was obtained. Sterile technique was utilized. 1% lidocaine for skin anesthesia. Using fluoroscopy guidance, lumbar puncture was performed at the L3-4 level. One fluoroscopic image was saved. 4 tubes of CSF were collected for laboratory analysis. No complications. Impression: Successful fluoroscopy guided lumbar puncture.
--- NOTE | 2018-11-13 15:46 | Procedure Note ---
Date of procedure: 11/13/18 Pre-op diagnosis: fever, seizure Post-op diagnosis: same Procedure: flouro guided LP Anesthesia: local Surgeon: MARY LANDEROS Estimated blood loss: none Pathology: list (4 csf tubes) Specimen disposition: to lab Condition: stable Disposition: floor
--- NOTE | 2018-11-13 16:52 | Progress Note ---
Assessment and Plan Assessment and plan: Patient is a 48 yo man with a history of deafness with left hearing aid and seizure disorder who presented to [facility] ED with AMS and seizure activity. He was found to fevers of 101.9F Status epileptics: treat with iv keppra, Neurology is following Fevers, LP was unsuccessful in ED, already started on IV abx: consulted ID, Lumbar puncture results reviewed Acute encephalopathy no meninigtis mri brain negative 1013 to be rescinded anticipate once ID clears. History Interval history: Patient was seen and examined. Follow-up on current diagnosis AMS. Overnight uneventful. Patient denies any chest pain, shortness breath, nausea/vomiting or severe headaches. Imaging, nursing note, chart, labs and old chart reviewed. Discussed with patient. Hospitalist Physical - Physical exam Narrative exam: Gen: WDWN, NAD, Awake, Alert, Orientated HEENT: NCAT, EOMI, PERRL, OP Clear Neck: supple, no adenopathy, no thyromegaly, no JVD CVS/Heart: RRR, normal S1S2, pulses present bilaterally Chest/Lungs: CTA B, Symmetrical chest expansion, good air entry bilaterally GI/Abdomen: soft, NTND, good bowel sounds, no guarding or rebound /Bladder: no suprapubic tenderness, no CVA or paraspinal tenderness Extermity/Skin: no c/c/e, no obvious rash MSK: FROM x 4 Neuro: CN 2-12 grossly intact except hearing, no new focal deficits Psych: calm - Constitutional Vitals: Temp Pulse Resp BP Pulse Ox 97.4 F L 91 H 20 124/82 97 11/13/18 12:29 11/13/18 12:29 11/13/18 12:29 11/13/18 12:29 11/13/18 12:29 Results - Labs CBC & Chem 7: 11/13/18 05:37 11/13/18 05:37 Labs: Laboratory Last Values WBC 6.4 K/mm3 (4.5-11.0) 11/13/18 05:37 RBC 4.28 M/mm3 (3.65-5.03) 11/13/18 05:37 Hgb 14.3 gm/dl (11.8-15.2) 11/13/18 05:37 Hct 41.6 % (35.5-45.6) 11/13/18 05:37 MCV 97 fl (84-94) H 11/13/18 05:37 MCH 33 pg (28-32) H 11/13/18 05:37 MCHC 34 % (32-34) 11/13/18 05:37 RDW 13.4 % (13.2-15.2) 11/13/18 05:37 Plt Count 197 K/mm3 (140-440) 11/13/18 05:37 Lymph % (Auto) 22.7 % (13.4-35.0) 11/12/18 04:59 [place] % (Auto) 15.9 % (0.0-7.3) H 11/12/18 04:59 Eos % (Auto) 0.1 % (0.0-4.3) 11/12/18 04:59 Baso % (Auto) 0.4 % (0.0-1.8) 11/12/18 04:59 Lymph # 1.6 K/mm3 (1.2-5.4) 11/12/18 04:59 [place] # 1.1 K/mm3 (0.0-0.8) H 11/12/18 04:59 Eos # 0.0 K/mm3 (0.0-0.4) 11/12/18 04:59 Baso # 0.0 K/mm3 (0.0-0.1) 11/12/18 04:59 Seg Neutrophils % 60.9 % (40.0-70.0) 11/12/18 04:59 Seg Neutrophils # 4.3 K/mm3 (1.8-7.7) 11/12/18 04:59 PT 12.7 Sec. (12.2-14.9) 11/11/18 13:00 INR 0.90 (0.87-1.13) 11/11/18 13:00 VBG pH 7.389 (7.320-7.420) 11/11/18 13:00 Sodium 142 mmol/L (137-145) 11/13/18 05:37 Potassium 4.0 mmol/L (3.6-5.0) 11/13/18 05:37 Chloride 103.5 mmol/L (98-107) 11/13/18 05:37 Carbon Dioxide 26 mmol/L (22-30) 11/13/18 05:37 Anion Gap 17 mmol/L 11/13/18 05:37 BUN 14 mg/dL (9-20) 11/13/18 05:37 Creatinine 0.8 mg/dL (0.8-1.5) 11/13/18 05:37 Estimated GFR > 60 ml/min 11/13/18 05:37 BUN/Creatinine Ratio 18 % 11/13/18 05:37 Glucose 115 mg/dL (75-100) H 11/13/18 05:37 POC Glucose 87 (70-105) 11/11/18 12:17 Hemoglobin A1c 5.8 % (4-6) 11/11/18 23:08 Lactic Acid 1.80 mmol/L (0.7-2.0) 11/11/18 14:53 Calcium 8.6 mg/dL (8.4-10.2) 11/13/18 05:37 Total Bilirubin 0.50 mg/dL (0.1-1.2) 11/12/18 04:59 AST 29 units/L (5-40) 11/12/18 04:59 ALT 27 units/L (7-56) 11/12/18 04:59 Alkaline Phosphatase 62 units/L (35-129) 11/12/18 04:59 Total Protein 7.4 g/dL (6.3-8.2) 11/12/18 04:59 Albumin 4.0 g/dL (3.9-5) 11/12/18 04:59 Albumin/Globulin Ratio 1.2 % 11/12/18 04:59 Vitamin B12 1023 pg/mL (211-911) H 11/12/18 13:40 TSH 3.660 mlU/mL (0.270-4.200) 11/12/18 13:40 Urine Color Yellow (Yellow) 11/11/18 16:11 Urine Turbidity Clear (Clear) 11/11/18 16:11 Urine pH 6.0 (5.0-7.0) 11/11/18 16:11 Ur Specific [place] 1.029 (1.003-1.030) 11/11/18 16:11 Urine Protein 30 mg/dl mg/dL (Negative) 11/11/18 16:11 Urine Glucose (UA) Neg mg/dL (Negative) 11/11/18 16:11 Urine Ketones Tr mg/dL (Negative) 11/11/18 16:11 Urine Blood Neg (Negative) 11/11/18 16:11 Urine Nitrite Neg (Negative) 11/11/18 16:11 Urine Bilirubin Neg (Negative) 11/11/18 16:11 Urine Urobilinogen < 2.0 mg/dL (<2.0) 11/11/18 16:11 Ur Leukocyte Esterase Neg (Negative) 11/11/18 16:11 Urine WBC (Auto) 1.0 /HPF (0.0-6.0) 11/11/18 16:11 Urine RBC (Auto) 1.0 /HPF (0.0-6.0) 11/11/18 16:11 U Epithel Cells (Auto) < 1.0 /HPF (0-13.0) 11/11/18 16:11 Urine Mucus Few /HPF 11/11/18 16:11 CSF Appearance Clear 11/13/18 12:15 CSF Color Colorless 11/13/18 12:15 CSF WBC 2 /mm3 (1-10) 11/13/18 12:15 CSF RBC 29 /mm3 (0-0) 11/13/18 12:15 CSF Seg Neutrophils 20.0 % (0-6) 11/13/18 12:15 CSF Lymphocytes % 70.0 % (40-80) 11/13/18 12:15 CSF Reactive Lymphs 0 % 11/13/18 12:15 CSF Monocytes % 0 % (15-45) 11/13/18 12:15 CSF Eosinophils % 10.0 % 11/13/18 12:15 CSF Basophils 0 % 11/13/18 12:15 CSF Pathologist Review C 11/13/18 12:15 CSF Glucose 78 mg/dL 11/13/18 12:15 CSF Total Protein 74 mg/dL 11/13/18 12:15 Valproic Acid 28.4 ug/mL (50-100) L 11/12/18 13:40 Carbamazepine 6.2 ug/mL (4-12) 11/12/18 13:40
[2018-11-14 05:09] LABS: Hematocrit 39.6 % (35.5-45.6); Hemoglobin 13.7 gm/dl (11.8-15.2); Mean Corpuscular HGB Conc 35 % (32-34); Mean Corpuscular Volume 97 fl (84-94); Platelet Count 212 K/mm3 (140-440); Red Blood Count 4.09 M/mm3 (3.65-5.03); Red Cell Distribution Width 13.4 % (13.2-15.2)
[2018-11-14 05:27] LABS: BUN/Creatinine Ratio 15; Blood Urea Nitrogen 12 mg/dL (9-20); Calcium 8.9 mg/dL (8.4-10.2); Hemolysis Index 23
[2018-11-14 06:17] VITALS: BP 141/83
[2018-11-14] MEDS: ROCEPHIN/NS 2 GM/100 ML 2 GM/100 ML BAG IV SCH (09:01)
[2018-11-14] MEDS: PEPCID IV SCH (09:02)
[2018-11-14] MEDS: SODIUM CHLORIDE FLUSH SYRINGE 10 ML IV SCH (09:03)
[2018-11-14] MEDS ORDERED: KEPPRA PO SCH (10:00)
--- NOTE | 2018-11-14 10:21 | Discharge Summary ---
Providers - Providers Date of Admission: 11/11/18 16:51 Date of discharge: 11/14/18 Attending physician: JOSE ALVAREZ 11/11/18 22:57 Consult to Physician [CONS] Routine Comment: Consulting Provider: SKYLER JACKSON Physician Instructions: Reason For Exam: seizures 11/12/18 15:11 Consult to Physician [CONS] Routine Comment: Consulting Provider: JIMBO BURGER Physician Instructions: i notified Reason For Exam: Fevers, ?meningitis 11/12/18 16:35 Occupational Therapy Evaluate and Treat [CONS] Routine Comment: Reason For Exam: generalized weakness 11/12/18 17:15 Consult to Mental Health [CONS] Urgent Reason For Exam: psych 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 He was found to fevers of 101.9F Status epileptics: treat with iv keppra, Neurology is following Fevers, most likely related to suspected SIRS with organ dysfunction from recurrent seizures, poa. LP was unsuccessful in ED, already started on IV abx: consulted ID, Lumbar puncture results reviewed Acute encephalopathy due to the above no meninigtis mri brain negative 1013 to be rescinded Disposition: DC-01 TO HOME OR SELFCARE Time spent for discharge: 33 minutes Core Measure Documentation - Palliative Care Palliative Care/ Comfort Measures: Not Applicable - Core Measures Any of the following diagnoses?: none - VTE Discharge Requirements Deep Vein Thrombosis/Pulmonary Embolism Present on Admission: No Has pt received <5 days of overlap therapy or INR<2.0: No Anticoagulant overlap therapy prescribed at discharge: No Contraindication No Overlap Therapy order at DC: Not Indicated Exam - Physical Exam Narrative exam: Gen: WDWN, NAD, Awake, Alert, Orientated HEENT: NCAT, EOMI, PERRL, OP Clear Neck: supple, no adenopathy, no thyromegaly, no JVD CVS/Heart: RRR, normal S1S2, pulses present bilaterally Chest/Lungs: CTA B, Symmetrical chest expansion, good air entry bilaterally GI/Abdomen: soft, NTND, good bowel sounds, no guarding or rebound /Bladder: no suprapubic tenderness, no CVA or paraspinal tenderness Extermity/Skin: no c/c/e, no obvious rash MSK: FROM x 4 Neuro: CN 2-12 grossly intact except hearing, no new focal deficits Psych: calm - Constitutional Vitals: Temp Pulse Resp BP Pulse Ox 98.2 F 88 20 141/83 96 11/14/18 06:15 11/14/18 06:15 11/14/18 06:15 11/14/18 06:15 11/14/18 06:15 Plan Activity: other (no strenous activity unless cleared by pcp) Diet: regular Follow up with: KATHLEEN TOUSSAINTCARR MD YAAKOV [Primary Care Provider] - 3-5 Days SHAWN SPANGLER MD [Referring] - 7 Days JIMBO BURGER MD [Staff Physician] - 7 Days Prescriptions: levETIRAcetam [Keppra TAB] 750 mg PO BID #60 tablet
--- NOTE | 2018-11-14 13:28 | Progress Note ---
Subjective Date of service: 11/14/18 Interval history: LP not consistent with infection. No fever. No leucocytosis. Ok to discharge from ID standpoint off abx. Objective - Constitutional Vitals: Vital Signs Temp Pulse Resp BP Pulse Ox 98.2 F 88 20 141/83 96 11/14/18 06:15 11/14/18 06:15 11/14/18 06:15 11/14/18 06:15 11/14/18 06:15 Temperature -Last 24 Hours Temperature 98.2 F Temperature 99.3 F Temperature 98.1 F - Labs CBC & Chem 7: 11/14/18 04:22 11/14/18 04:22 Labs: Abnormal lab results 11/14/18 11/14/18 Range/Units 04:22 04:22 MCV 97 H (84-94) fl MCH 34 H (28-32) pg MCHC 35 H (32-34) % Glucose 111 H (75-100) mg/dL
== END 2018-11-14 11:00 | disposition home or self-care (01) | DRG 100 ==
LOC: ED 12:06 → 3A 16:51
PROVIDERS: ADMIT Internal Medicine; ATTEND Internal Medicine
PROC: 00JU3ZZ Inspection of Spinal Canal, Percutaneous Approach (ICD-10-PCS; principal; 2018-11-11)
PROC: 009U3ZX Drainage of Spinal Canal, Percutaneous Approach, Diagnostic (ICD-10-PCS; 2018-11-13)
PROC: B01B1ZZ Fluoroscopy of Spinal Cord using Low Osmolar Contrast (ICD-10-PCS; 2018-11-13)
DX: G40.901 Epilepsy, unspecified, not intractable, with status epilepticus (principal); R65.11 Systemic inflammatory response syndrome (SIRS) of non-infectious origin with acute organ dysfunction; H91.92 Unspecified hearing loss, left ear
CPT/HCPCS: 36415; 62270; 70450; 70551; 71045; 77003; 80048; 80053; 80156; 80164; 81001; 82140; 82607; 82805; 82947; 82962; 83036; 84160; 84443; 85025; 85027; 85610; 86403; 86592; 87040; 87086; 87116; 87498; 87799; 89051; 93005; 93010; G0378; J0692; J0696; J1953; J2060; J7040